=== PATIENT | male | born 1970 | race Caucasian/White ===

== ENCOUNTER → 2016-04-30 | Outpatient (CLI) | payer BC ==
[~2016-04-30] MED LIST: ACCU CHEK IN; METFORMIN HCL500 M1 PO
--- NOTE | ~2016-04-30 | NM78 ---
[facility] A Service of [facility] & [facility] RADIOLOGY TEXT RESULTS PATIENT: JOAQUÍN MEZA LOCATION: [facility] : 70 UNIT #: [id number] AGE: [address]: Ned Ferris MD SEX: M ORDER DR: [id number] [facility]. [place], [place] [address] [id number] O MR#: [id number] Acc #: [id number] NAME: JOAQUÍN MEZA : 1970 SEX: M STUDY DATE/TIME: 04/30/2016 11:23 UNIT: [facility] ROOM: STUDY DESCRIPTION: ID Radiopharm Tx oral Attending Physician: Myra Ferris M.D. Referring Physician: Myra Ferris M.D. Ordering Physician: Myra Ferris M.D. Primary Care Physician: Nancy Orellana M.D. MEDICAL IMAGING REPORT This report is preliminary unless electronic signature is present EXAM Initial Iodine-131 radiopharmaceutical therapy for hyperthyroidism. DATE OF EXAM 04/30/2016 INDICATIONS 46-year-old male with diagnosis of hyperthyroidism by laboratory analysis and elevated thyroid uptake and scan of 47.1% at 24 hours, serum TSH of less than 0.01 micro-international units per mL and elevated free T4 of 1.82 ng/dL on March 27, 2016. Iodine-131 therapy was requested for symptomatic relief of hyperthyroidism. FINDINGS A total of 26.1 mCi of Iodine-131 were administered orally in capsule form today. Prior to administration of therapy, risks of therapy were discussed with the patient including primarily change in taste and sensation of dry mouth. The patient was instructed to drink plenty of water and to ingest lemon drops or other sour candies in order to minimize radiation dose to the salivary glands, and to minimize the risk of dry mouth, salivary gland discomfort and change in taste sensation. The patient also signed a copy of the radiation safety precaution sheet which stressed importance of keeping appropriate distance from others for the next several days and to avoid using the same bathroom, eating utensils or toothbrush as others in his family. All patient's questions were answered prior to administration of therapy. Patient was discharged with a copy of the radiation safety sheet and was instructed to follow up with Dr. Ferris to assess adequacy of therapy. IMPRESSION Iodine-131 therapy was performed for hyperthyroidism. [facility] A Service of [facility] RADIOLOGY TEXT RESULTS PATIENT: [facility]AQU[id number] 70 UNIT #: [id number] AGE: [address]: Ned Ferris MD SEX: M ORDER DR: Dictated by... Fred Wilson M.D. THIS IS AN ELECTRONICALLY VERIFIED REPORT Fred Wilson M.D. at 05/03/2016 6:47 PM DAVID/elvia TD: 04/30/2016 15:27 JOB #: [id number] MEDICAL IMAGING REPORT COPY
== END | disposition home or self-care (01) ==
LOC: CNUC 11:13
DX: E05.90 Thyrotoxicosis, unspecified without thyrotoxic crisis or storm (principal)
CPT/HCPCS: 36415; 79005; 84443; A9517